=== PATIENT | male | born 1990 | race Caucasian/White ===

== ENCOUNTER 2024-11-13 19:51 | Emergency (ER) | payer MEDICAID, OTHER ==
[~2024-11-13] VITALS: Ht 170.2 cm; Wt 82.0 kg
[2024-11-13 19:55] VITALS: TEMP 98.2; O2SAT 99
[2024-11-13 20:56] LABS: BASOPHILS % 0.7 % (0.0-2.0); HEMATOCRIT. 40.6 % (42.0-52.0); HEMOGLOBIN. 13.8 g/dL (14.0-18.0); LYMPHOCYTES % 15.8 % (20.0-50.0); MEAN CORPUSCULAR HEMOGLOBIN 29.6 pg (28.0-32.0); MEAN CORPUSCULAR HGB CONC 34.1 g/dL (31.0-37.0); MEAN CORPUSCULAR VOLUME 86.6 fL (80.0-94.0); MEAN PLATELET VOLUME 8.7 fl (7.4-10.4); MONOCYTES % 14.9 % (2.0-8.0); NEUTROPHILS % 68.6 % (40.0-76.0); PLATELET 224 x1000/uL (130-400); RED BLOOD CELL COUNT 4.68 mill/uL (4.7-6.1); RED CELL DISTRIBUTION WIDTH 12.7 % (11.6-14.6); WHITE BLOOD COUNT 10.1 x1000/uL (4.5-11.0)
[2024-11-13 21:16] LABS: CARBON DIOXIDE 21 mEq/L (21-32); CHLORIDE 101 mEq/L (98-107); POTASSIUM 3.7 mEq/L (3.5-5.1); SODIUM 133 mEq/L (136-145)
[2024-11-13 21:17] LABS: CALCIUM 9.8 mg/dL (8.7-10.4)
[2024-11-13 21:21] LABS: CREATININE 1.3 mg/dL (0.6-1.3)
[2024-11-13 21:22] LABS: GLUCOSE 114 mg/dL (70-105); UREA NITROGEN BLOOD 14 mg/dL (9-23)
[2024-11-13 21:24] LABS: ALANINE AMINOTRANSFERASE 57 IU/L (10-49); ALBUMIN 4.7 g/dL (3.2-4.8); ASPARTATE AMINOTRANSFERASE 55 IU/L (<34); BILIRUBIN DIRECT 0.3 mg/dL (<=3.0); BILIRUBIN TOTAL 0.8 mg/dL (0.1-1.0); PROTEIN TOTAL 7.9 g/dL (6.0-8.3)
[2024-11-13] MEDS: FAMOTIDINE 20MG TABLET PO ONE (23:07)
[2024-11-13] MEDS: ONDANSETRON 4MG ODT PO ONE (23:07)
[2024-11-14 01:18] LABS: CLARITY URINE TURBID (CLEAR); COLOR URINE DARK YELLOW (YELLOW); GLUCOSE URINE NEGATIVE (NEGATIVE); KETONES URINE 1+ (NEGATIVE); LEUKOCYTE ESTERASE URINE 2+ (NEGATIVE); NITRITE URINE POSITIVE (NEGATIVE); OCCULT BLOOD URINE 2+ (NEGATIVE); PH URINE 5.5 (4.5-8.0); PROTEIN URINE 2+ (NEGATIVE); SPECIFIC GRAVITY URINE 1.018 (1.005-1.030)
[2024-11-14] MEDS ORDERED: CEPH500T MT (01:55)
[2024-11-14] MEDS ORDERED: NAPR220C61 MT (01:55)
[2024-11-14 02:04] LABS: RBC URINE 0-2 /hpf (0-2); WBC URINE 50-100 /hpf (0-2)
[2024-11-14 02:05] LABS: BACTERIA URINE 2+; SQUAMOUS EPITHELIAL CELL URINE RARE /lpf (RARE/1+)
[2024-11-14 02:23] VITALS: BP 112/89; PULSE 106; RESP 18
[2024-11-14] MEDS: CEFTRIAXONE SODIUM 1G VIAL IM ONE (02:23)
[2024-11-14] MEDS: KETOROLAC 30MG/ML VIAL IM ONE (02:23)
== END 2024-11-14 02:24 | disposition home or self-care (01) ==
LOC: ER 19:51
DX: N39.0 Urinary tract infection, site not specified (principal); Z87.442 Personal history of urinary calculi
CPT/HCPCS: 99284; 74176; 80076; 80048; 85025; 36415; 81003; 87086; 87186; 87077; Q0162; J0696